=== PATIENT | male | born 1950 | race Caucasian/White ===

== ENCOUNTER → 2016-09-19 | Outpatient (CLI) | payer OTHER ==
--- NOTE | 2016-09-19 17:30 | DX ---
Chest, Two Views - September 19, 2016, at 1430 hours History: Acute bronchitis, J20.9. Comparison: None. Findings: Cardiac silhouette is within normal range. Bilateral peribronchial thickening. No pneumon ia, congestive heart failure, pleural effusion, or pneumothorax. Moderate degenerative disk disease i n the thoracic spine. Impression: 1. Bronchitis. 2. No definite focal pneumonia.
== END ==
LOC: FIMAGING 14:34
PROVIDERS: ATTEND Nurse Practitioner Family
DX: J20.9 Acute bronchitis, unspecified (principal)

== ENCOUNTER 2018-02-18 08:51 | Emergency (ER) | payer OTHER ==
[2018-02-18 08:59] VITALS: BP 110/69
--- NOTE | 2018-02-18 09:15 | EDPHY ---
H & P Stated Complaint: Cough x 2 months, fever at home & fatigue x 4 days Time Seen by Provider: 02/18/18 09:01 HPI/ROS: CHIEF COMPLAINT: Cough times several months HISTORY OF PRESENT ILLNESS: 67-year-old male generally healthy, nonsmoker, no known sick contacts, complaining of intermittently productive cough for the past several months with development of subjective fever and fatigue in the past 4 days. No dyspnea. No chest pain. No nuchal rigidity. No sore throat. No back pain. No rash. No weight loss. No abdominal pain. No diarrhea. No Audie inhibitor use. PRIMARY CARE PROVIDER: REVIEW OF SYSTEMS: A ten point review of systems was performed and is negative with the exception of the items mentioned in the HPI PAST MEDICAL & SURGICAL HISTORY: No history of chronic pulmonary disease. SOCIAL HISTORY: Nonsmoker. Retired. Lives by himself PHYSICAL EXAM (Prior to examination, patient consented to physical exam, hands were washed and my usual and customary physical exam procedures followed) 1) GENERAL: Well-developed, well-nourished, alert and oriented. Appears to be in no acute distress. 2) HEAD: Normocephalic, atraumatic 3) HEENT: Pupils equal, round, reactive to light bilaterally. Sclera anicteric. Nasopharynx, oropharynx, clear, no lesions. No tonsillar enlargement or exudate. Ears bilaterally with normal tympanic membranes. 4) NECK: Full range of motion, no meningeal signs. 5) LUNGS: [Clear auscultation bilaterally, no wheezes, no rhonchi, no retractions. Speaking full sentences with no signs of respiratory distress 6) HEART: Regular rate and rhythm, no murmur, no heave, no gallop. 7) ABDOMEN: No guarding, no rebound, no focal tenderness, negative McBurney's, negative Richard's, negative Rovsing's, negative peritoneal sign, 8) MUSCULOSKELETAL: Moving all extremities, no focal areas of tenderness, no obvious trauma. No peripheral edema or discoloration. 9) BACK: No CVA tenderness, no midline vertebral tenderness, no fluctuance, no step-off, no obvious trauma, no visual or palpable abnormality. 10) SKIN: No rash, no petechiae. 11) Psychiatric: Patient is oriented X 3, there is no agitation. DIFFERENTIAL DIAGNOSIS: In no particular order including but limited to chronic bronchitis, pneumonia, malignancy - Medical/Surgical History Hx Asthma: No Hx Chronic Respiratory Disease: No Hx Diabetes: No Hx Cardiac Disease: No Hx Renal Disease: No Hx Cirrhosis: No Hx Alcoholism: No Hx HIV/AIDS: No Hx Splenectomy or Spleen Trauma: No Other PMH: DENIES - Social History Smoking Status: Never smoked Constitutional: Initial Vital Signs Temperature (C) 37.3 C 02/18/18 08:55 Heart Rate 72 02/18/18 08:55 Respiratory Rate 18 02/18/18 08:55 Blood Pressure 110/69 02/18/18 08:55 O2 Sat (%) 92 02/18/18 08:55 O2 Delivery Mode Room Air Allergies/Adverse Reactions: No Known Allergies Allergy (Verified 02/18/18 08:54) Home Medications: Medication Instructions Recorded Azithromycin [Zithromax] 500 mg PO DAILY #1 tablet 02/18/18 Benzonatate [Tessalon Pearles (RX)] 200 mg PO TID PRN #15 cap 02/18/18 Medical Decision Making ED Course/Re-evaluation: 9:08 a.m.: Given the longevity of the patient's symptoms recommended chest x- ray. He agrees with this. 9:42 a.m.: Re-evaluation, discussed his x-ray showing left lower lobe pneumonia. He is breathing comfortably, maintain normal saturations. Do not think that hospitalization is indicated. Think he can be treated on outpatient basis for community-acquired pneumonia with azithromycin. Recommend close follow up with his PCP. My usual and customary discharge precautions and instructions provided. I saw this patient independently based on established practice protocols. Care of patient under supervision of secondary supervising physician Dr Lizbeth Sears with whom I discussed case. Departure - Departure Disposition: Home, Routine, Self-Care Clinical Impression: Cough Left lower lobe pneumonia Qualifiers: Pneumonia type: due to unspecified organism Qualified Code(s): J18.1 - Lobar pneumonia, unspecified organism Condition: Good Instructions: Chronic Cough (ED), Bacterial Pneumonia (ED) Additional Instructions: Return to the emergency department immediately for change in breathing habits, change in voice, change in swallowing habits, change in mental status, or any other symptoms that concern you. Referrals: Adrien Upton MD [Primary Care Provider] - 5-7 days, call for appt. Prescriptions: Azithromycin [Zithromax] 500 mg PO DAILY #1 tablet Benzonatate [Tessalon Pearles (RX)] 200 mg PO TID PRN #15 cap PRN Reason: Cough, Moderate
== END 2018-02-18 09:49 | disposition home or self-care (01) ==
DX: J18.9 Pneumonia, unspecified organism (principal)

== ENCOUNTER 2018-02-27 12:42 | Inpatient (IN) | payer OTHER ==
[2018-02-27] MEDS ORDERED: IOPAMIDOL (ISOVUE 370) 100 ML BTL IV ONE (17:12)
[2018-02-27] MEDS ORDERED: ACETAMINOPHEN 325 MG TAB PO PRN (19:28)
--- NOTE | 2018-02-27 20:01 | PDGENHP ---
History and Physical - Chief Complaint cough, SOB - History of Present Illness 67 yo male who is otherwise healthy and active presents to hospital for direct admission from clinic, where he was diagnosed with PE. He developed a cough about 2 1/2 months ago after driving from [place] to [place]. It seemed to only get worse and then he developed a fever 10 days ago. He was diagnosed with pneumonia based on CXR and was treated with Azithromycin. His fever resolved. However, he continued to have sinus problems and cough. He admits to shortness of breath, worse with activity. He continues to have ow grade fevers, temp of 99 today. He complains of left sided pleuritic chest pain, which he thought was a bruised rib. With his ongoing symptoms, his PCP ordered a CTA and he was found to have bilateral, moderate volume PE. He is admitted to the hospital for further management. History Information - Allergies/Home Medication List Allergies/Adverse Reactions: No Known Allergies Allergy (Verified 02/18/18 08:54) Home Medications: Cholecalciferol Vit D3 [Vitamin D3 (*)] 5,000 units PO DAILY 02/27/18 [Last Taken 3 Days Ago ~02/24/18] guaiFENesin [Mucinex 600 MG (*)] 600 mg PO QID PRN 02/27/18 [Last Taken 09:00] I have personally reviewed and updated: family history, medical history, social history, surgical history - Past Medical History no pertinent PMH Additional medical history: No PMHx, reviewed with pt - Surgical History Reports: no pertinent surgical hx - Family History Additional family history: Mom had melanoma. Dad had some type of facial cancer , diagnosed after he was shot in the face. No family h/o clotting disorders - Social History Smoking Status: Never smoked Alcohol Use: None Drug Use: None Additional social history: Lives independently. Recently drove from [place] to [place] and back. Review of Systems Review of Systems: ROS: 10pt was reviewed & negative except for what was stated in HPI & below Physical Exam Physical Exam: Temp Pulse Resp BP Pulse Ox 36.3 C 64 17 125/69 H 93 02/27/18 19:38 02/27/18 19:38 02/27/18 19:38 02/27/18 19:38 02/27/18 19:38 Constitutional: no apparent distress Eyes: PERRL Ears, Nose, Mouth, Throat: moist mucous membranes Cardiovascular: regular rate and rhythym, no murmur, rub, or gallop Respiratory: no respiratory distress, other (bibasilar crackles L>R) Gastrointestinal: normoactive bowel sounds, soft, non-tender abdomen Skin: warm Musculoskeletal: full muscle strength, other (1+ RLE pitting ankle edema) Neurologic: AAOx3 Psychiatric: interacting appropriately Lab Data & Imaging Review Visualized and Interpreted Chest x-ray results: Yes Chest X-Ray results: infiltrate Assessment & Plan Assessment: Acute PE - moderate volume b/l clot burden. Suspect this may be provoked from his recent car ride to [place] and back as he has been symptomatic for some time. Hemodynamically stable. No hypoxemia. -Lovenox 1 mg/kg, can likely transition to Eliquis at d/c, discussed with pt -check EKG to eval for heart strain and consider echo if present -trend trop -check LE u/s to eval for DVT source Possible PNA - unclear if LLL is consolidation or infarct from PE though significant crackles on exam plus leukocytosis, s/p tx with Azithromycin -BCx's pending from outpt clinic -send PCT -treat with Ceftriaxone for now and consider d/c atbx if PCT neg -anti-tussives prn -recommend repeat imaging in 4-6 weeks to ensure no post-obstructive process Full code Dispo - admit to inpt, anticipate >48 hrs hospitalization for stabilization of acute PE
[2018-02-27] MEDS ORDERED: oxyCODONE IR 5 MG TAB PO PRN (20:13)
[2018-02-27] MEDS ORDERED: GUAIFENESIN/DM 10 ML UDCUP PO PRN (20:13)
[2018-02-27] MEDS: ENOXAPARIN 80 MG/0.8 ML SYR SC SCH (20:23)
--- NOTE | 2018-02-27 20:47 | CPEKG ---
Heart Rate: 67 RR Interval: 896 P-R Interval: 180 QRSD Interval: 96 QT Interval: 388 QTC Interval: 410 P Industry: 61 QRS Industry: 17 T Wave Industry: -2 EKG Severity - BORDERLINE ECG - EKG Impression: SINUS RHYTHM EKG Impression: PROBABLE LEFT ATRIAL ABNORMALITY EKG Impression: BORDERLINE T ABNORMALITIES, INFERIOR LEADS Electronically Signed By: Javed Sauer 28-Feb-2018 11:00:23
[2018-02-28] MEDS ORDERED: BENZONATATE 100 MG CAP PO PRN ×2 (04:19→21:24)
[2018-02-28 04:55] LABS: PLATELET COUNT 203 10^3/uL (150-400)
[2018-02-28] MEDS: ENOXAPARIN 80 MG/0.8 ML SYR SC SCH ×2 (08:41→21:14)
--- NOTE | 2018-02-28 11:17 | PDMN ---
Medical Necessity Medical necessity: Pt meets IP criteria per MD; est los >2 mn for eval/tx of bilateral moderate volume PE & possible pneumonia w/cough, shortness of breath, low grade fevers & pleuritic chest pain; admit for further workup/cardiac monitoring, IV abx, med management & supportive care; per H&P & order 02/27/18
--- NOTE | 2018-02-28 12:09 | ASMTCMCOM ---
CM Note CM Note Notes: 02/28/2018 Case Management Note Pt admitted for treatment of PE. Met w/pt to determine discharge needs. Pt is retired. Pt takes care of his home independently and is able to drive and prepare meals without difficulty. Pt lives alone and is independent with his ADL's. Pt had questions re: living will and MDPOA. Provided health care decisions booklet and answered questions. Pt to fill out and return to staff once completed. There are no PT or OT evals ordered at this time. Case Management d/c poc: anticipating home independent with follow up as directed. Case Management available if needs change. Date Signed: 02/28/2018 12:08 PM Electronically Signed By:Rhonda Neri RN
--- NOTE | 2018-02-28 13:39 | ECHO ---
[email or web address] [address] [address] Main: [phone] Fax: Transthoracic Echocardiogram Name: EDEN ARCHER MR#: [id number] Study Date: 02/28/2018 Study Time: 11:40 AM Date of : 1950 Age: 67 year(s) Height: 177.8 cm (70 in.) Weight: 78.47 kg (173 lb.) BSA: 1.96 m2 Gender: Male Examination: Limited Echo Indication: Acute PE/Right heart strain on EKG/eval RV function Image Quality: Contrast: Requested by: Hnanah Fountain BP: / Heart Rate: Rhythm: Indication: Acute PE/Right heart strain on EKG/eval RV function Procedure Staff Media Services Director: Aniya Valadez RDCS Reading Physician: Tyler Winn MD Requesting Provider: Conclusions: The ejection fraction is estimated to be 65-70 %. Normal size right ventricle. Mildly to moderately reduced right ventricular function. Trivial mitral valve regurgitation. The aortic valve is tri-leaflet. The tricuspid valve appears normal. Trivial tricuspid valve regurgitation. The pulmonary artery pressure is normal. Very limited study - pt in alot of pain lying in bed.. No previous. Measurements: Chambers Valvular Assessment AV/MV Valvular Assessment TV/PV Normal Normal Normal Name Value Range Name Value Range Name Value Range EF Range: 65-70 % Continued Measurements: Findings: The ejection fraction is estimated to be 65-70 %. Right Ventricle: Normal size right ventricle. Mildly to moderately reduced right ventricular function. Mitral Valve: Trivial mitral valve regurgitation. Aortic Valve: The aortic valve is tri-leaflet. Tricuspid Valve: Patient: EDEN ARCHER Study Date: 02/28/2018 Page 1 of 2 11:40 AM The tricuspid valve appears normal. Trivial tricuspid valve regurgitation. The pulmonary artery pressure is normal. Exam Comments: Very limited study - pt in alot of pain lying in bed.. (No Signature Object) Patient: EDEN ARCHER Study Date: 02/28/2018 Page 2 of 2 11:40 AM [id number]
--- NOTE | 2018-02-28 14:59 | HOSPPROG ---
Hospitalist Progress Note Assessment/Plan: patient is a 67 y/o male who presented to the ER from a clinic in which he was diagnosed w a PE. He developed a cough about 2 1/2 mo ago after driving from [place] to [place]. He then developed a fever and was dx w pna and treated w Azithromycin. Today is my first encounter with the patient, chart reviewed. *Acute PE - moderate volume b/l clot burden. -most likely provoked from his recent car ride to [place]-he has been symptomatic -has an large DVT -has noted right heart strain on echo (moderately reduced rv function) -started on LMWH -start Eliquis in a.m. (he has a $400 deductible and after this is paid, it's $ 13/month) he is agreeable to this -trop x 2 are negative Possible PNA - unclear if LLL is consolidation or infarct from PE, he was recently treated with Azithromycin -BCx's pending from outpt clinic -procalcitonin<20 with low risk of infection -suspect his LLL crackles are from the infarct of the PE -has received 2 doses of Ceftriaxone, will dc -recommend repeat imaging in 4-6 weeks to ensure no post-obstructive process *Plan: initiate Eliquis tomorrow morning, he sees Dr Abad in the OP setting and will f/u with her Dispo - admit to inpt, anticipate >48 hrs hospitalization for stabilization of acute PE Subjective: Wesley said his shortness of breath is much improved, overall feeling better. Objective: Vital Signs Temp Pulse Resp BP Pulse Ox 36.4 C 74 20 117/71 93 02/28/18 11:53 02/28/18 11:53 02/28/18 11:53 02/28/18 11:53 02/28/18 11:53 Laboratory Results 02/28/18 04:45 02/27/18 02/28/18 03/01/18 05:59 05:59 05:59 Intake Total 550 Balance 550 - Physical Exam Constitutional: appears nourished, uncomfortable Eyes: PERRL Ears, Nose, Mouth, Throat: hearing normal Cardiovascular: regular rate and rhythym Respiratory: no respiratory distress, other (crackles bibas but > on r lower lobe) Gastrointestinal: normoactive bowel sounds Skin: warm Musculoskeletal: full muscle strength Neurologic: AAOx3 Psychiatric: interacting appropriately ICD10 Worksheet Patient Problems: Problems Problem Status Onset Pulmonary embolism and infarction Acute - ICD10 Problem Qualifiers (1) Pulmonary embolism and infarction
[2018-03-01 07:58] VITALS: BP 106/62
[2018-03-01] MEDS ORDERED: APIXABAN 5 MG TAB PO SCH (09:00)
--- NOTE | 2018-03-01 11:07 | ASMTCMCOM ---
CM Note CM Note Notes: Patient has been medically cleared for discharge to home. No needs identified. CM available should needs arise. Plan : Home independently. Date Signed: 03/01/2018 11:07 AM Electronically Signed By:Viviana Chauhan RN
--- NOTE | 2018-03-01 11:08 | ASMTLACE ---
LACE Length of stay for Answers: 1 day current admission Acuity / Level of Answers: Yes Care: Did the patient have an inpatient admission? Comorbidities - select Answers: Other Notes: PE, all that apply # of Emergency department Answers: 1-2 visits in the last 6 months Score: 6 Date Signed: 03/01/2018 11:03 AM Electronically Signed By:Viviana Chauhan RN
--- NOTE | 2018-03-01 14:05 | GDS ---
[f rep st] DISCHARGE SUMMARY DISCHARGE DIAGNOSES: 1. Pulmonary emboli. 2. Deep vein thrombosis. PHYSICAL EXAM: GENERAL: The patient is alert. VITAL SIGNS: Afebrile at 36.5. Pulse is 63. Respi ratory rate is 12. Blood pressure is 106/62. He is saturating 94% on room air. I have seen and angel luated the patient on the day of discharge. STUDIES AND PROCEDURES: 1. CT angio of the chest. 2. Extremity venous Doppler. 3. Echocardiogram. HOSPITAL COURSE: The patient is a 67-year-old male who presented to the emergency room with complain ts of chest pain. He was evaluated and diagnosed with: 1. Acute pulmonary emboli. During this hospitalization, CT angio of the chest was performed, noting moderate bilateral clot burden. The patient had recently been traveling on a road trip, which is li miladis the precipitating factor of his pulmonary emboli. He was treated with low-molecular weight hepa rin, as well as Eliquis during this hospitalization. He has been discharged with a prescription for Eliquis and will continue this in the outpatient setting. Troponins have been negative during this h ospitalization. He did have some noted right heart strain on echocardiogram. He is on room air and will continue anticoagulating medication in the outpatient setting. 2. Left lower lobe consolidation. This is likely secondary to the patient's pulmonary emboli. He d oes not show signs of acute infectious process. Antibiotics have been discontinued, and he will foll ow up with imaging in 4-6 weeks to assure resolution. DISPOSITION: Mr. Butler will be discharged home independently. FOLLOWUP: Followup will be with Dr. Geovanna Abad tomorrow, 03/02/2018. He has been provided a pres ription for Eliquis, which he will continue in the outpatient setting. I spent greater than 35 minutes in the care, coordination, and management of this patient's dispositi on. /[id number]/MODL
== END 2018-03-01 11:43 | disposition home or self-care (01) | DRG 176 ==
LOC: FIMAGING 12:42 → EDSTATUS 19:22 → F3E 19:23
PROVIDERS: ADMIT Hospitalist; ATTEND Student in an Organized Health Care Education/Training Program
DX: I26.99 Other pulmonary embolism without acute cor pulmonale (principal); I82.411 Acute embolism and thrombosis of right femoral vein; I82.431 Acute embolism and thrombosis of right popliteal vein
CPT/HCPCS: J0696; J1650; Q9967

== ENCOUNTER → 2018-07-25 | Outpatient (CLI) | payer OTHER | LOC: FIMAGING 11:41 | PROVIDERS: ATTEND Family Medicine | DX: R10.11 Right upper quadrant pain (principal); R10.12 Left upper quadrant pain ==